=== PATIENT | male | born 1985 | race Native Hawaiian/Other Pacific Islander ===

== ENCOUNTER 2016-12-04 13:36 | Outpatient (CLI) | payer BC | END 2016-12-04 19:53 | disposition home or self-care (01) | LOC: RAD 13:36 | DX: M25.561 Pain in right knee (principal) ==

== ENCOUNTER 2017-06-26 08:40 | Outpatient (CLI) | payer BC | END 2017-06-26 09:40 | disposition home or self-care (01) | LOC: RESP 08:40 | DX: R00.2 Palpitations (principal); R94.31 Abnormal electrocardiogram [ECG] [EKG]; I10 Essential (primary) hypertension | CPT/HCPCS: 93306 ==

== ENCOUNTER 2017-08-26 15:23 | Outpatient (CLI) | payer BC ==
[2017-08-26 15:41] LABS: PLATELET COUNT 86 K/uL (142-355)
[2017-08-26 16:02] LABS: POTASSIUM 3.6 mmol/L (3.6-5.2); SODIUM 139 mmol/L (136-145)
== END 2017-08-26 19:07 | disposition home or self-care (01) ==
LOC: LABW 15:23
PROVIDERS: Specialist
DX: Z01.810 Encounter for preprocedural cardiovascular examination (principal); R93.1 Abnormal findings on diagnostic imaging of heart and coronary circulation
CPT/HCPCS: 36415; 80053; 85027

== ENCOUNTER 2021-04-17 09:48 | Outpatient (CLI) | payer BC | END 2021-04-17 19:53 | disposition home or self-care (01) | LOC: RAD 09:48 | PROVIDERS: ATTEND Nurse Practitioner Family | DX: M25.522 Pain in left elbow (principal) ==